=== PATIENT | male | born 1990 | race Two or more races ===

== ENCOUNTER 2019-12-26 22:53 | Emergency (ER) | payer OTHER ==
[~2019-12-26] VITALS: Ht 170.2 cm; Wt 99.7 kg
--- NOTE | 2019-12-26 23:03 | NUR ---
PT REPORTS: "I HAD A COUPLE OF BEERS TO DRINK."
[2019-12-26] MEDS ORDERED: LIDOCAINE 1%-EPI 1:100K, 20ML ONE (23:26)
[2019-12-26] MEDS ORDERED: LORazepam 2 MG/ML, 1ML ONE (23:27)
[2019-12-26] MEDS ORDERED: MORPHINE SULFATE 4 MG/ML, 1ML ONE (23:27)
[2019-12-26] MEDS ORDERED: LIDOCAINE 1%-EPI 1:100K, 20ML INFIL ONE (23:30)
[2019-12-26] MEDS ORDERED: LORazepam 2 MG/ML, 1ML IV ONE (23:30)
[2019-12-26] MEDS ORDERED: MORPHINE SULFATE 4 MG/ML, 1ML IVPush PRN (23:30)
[2019-12-26] MEDS ORDERED: DIPH,PERTUSS(ACELL),TET VAC/PF 0.5 ML IM-VACC ONE ×2 (23:30→23:52)
[2019-12-26] MEDS ORDERED: CEFAZOLIN PMX 1GM/50ML 50 ML IVPB ONE (23:30)
[2019-12-26] MEDS ORDERED: SODIUM CHLORIDE FLUSH 10ML SYR IVF ONE (23:30)
--- NOTE | 2019-12-26 23:35 | NUR ---
MEDS ADMIN PER JAN. XRAY DONE. AT BEDSIDE. LIDOCAINE PULLED FOR PROVIDER ADMIN.
[2019-12-26] MEDS ORDERED: PLEASE ENTER ALLERGIES MC SCH (23:45)
[2019-12-26] MEDS ORDERED: CEFAZOLIN PMX 1GM/50ML 50 ML ONE (23:52)
--- NOTE | 2019-12-27 00:07 | NUR ---
PT RESTING ON GURNEY, PT MEDICATED PER JAN,RIGHT ARM WOUND IRRIGATED BY NORA JOHNSON. PA AT BEDSIDE FOR RECHECK
[2019-12-27] MEDS ORDERED: LIDOCAINE 1%-EPI 1:100K, 20ML ONE (00:29)
[2019-12-27] MEDS ORDERED: NEOSPORIN OINT. PKT 1 PACKET ONE (01:16)
[2019-12-27 01:23] VITALS: BP 110/62
== END 2019-12-27 01:53 | disposition home or self-care (01) ==
LOC: ED 23:47
DX: S51.811A Laceration without foreign body of right forearm, initial encounter (principal); X58.XXXA Exposure to other specified factors, initial encounter; Y93.01 Activity, walking, marching and hiking; Y92.410 Unspecified street and highway as the place of occurrence of the external cause; Y99.8 Other external cause status
CPT/HCPCS: 13121; 73090; 73100; 90471; 90715; 96365; 96375; 99285; J0690; J2060; J2270

== ENCOUNTER 2020-01-05 19:51 | Emergency (ER) | payer OTHER ==
[~2020-01-05] VITALS: Ht 177.8 cm; Wt 98.6 kg
== END 2020-01-05 20:26 | disposition home or self-care (01) ==
LOC: ED 20:15
DX: S51.811D Laceration without foreign body of right forearm, subsequent encounter (principal); X58.XXXD Exposure to other specified factors, subsequent encounter; Z48.02 Encounter for removal of sutures
CPT/HCPCS: 99281